=== PATIENT | female | born 1995 | race African-American/Black ===

== ENCOUNTER 2021-10-20 17:34 | Emergency (ER) | payer OTHER, MEDICAID ==
[~2021-10-20] VITALS: Ht 160 cm; Wt 63.5 kg
[~2021-10-20 17:34] MED LIST: CIPROFLOXACIN500 M1 PO; FLEXERIL PO; LORTABELXR PO; NOHOMEMEDICATIONS; ZPAK PO
[2021-10-20] MEDS ORDERED: DICLOXACILLIN500 MG PO (19:46)
[2021-10-20] MEDS ORDERED: NAPROSYN500 MG PO (19:46)
[2021-10-20 19:50] VITALS: BP 123/62
== END 2021-10-20 19:50 | disposition home or self-care (01) ==
LOC: M.ERS 17:34
DX: N64.59 Other signs and symptoms in breast (principal); Z98.890 Other specified postprocedural states